=== PATIENT | male | born 1995 | race African-American/Black ===

== ENCOUNTER 2018-01-05 19:58 | Emergency (ER) | payer OTHER ==
[~2018-01-05] VITALS: Ht 177.8 cm; Wt 129.7 kg
[~2018-01-05 19:58] MED LIST: DOXYCYCLINE150 MG PO; PANTOPRAZOLE SO40 MG; SEPTRA DS TABLE1 TAB PO
[2018-01-06] MEDS ORDERED: LEVAQUIN750 MG PO (03:31)
[2018-01-06] MEDS ORDERED: KETO10TA2 PO (03:31)
== END 2018-01-06 03:38 | disposition home or self-care (01) ==
LOC: ER 19:58
DX: L03.115 Cellulitis of right lower limb (principal)

== ENCOUNTER 2021-06-25 07:23 | Emergency (ER) | payer OTHER ==
[~2021-06-25] VITALS: Ht 175.3 cm; Wt 131.5 kg
[~2021-06-25 07:23] MED LIST changes: +KETO10TA2 PO; +LEVAQUIN750 MG PO
[2021-06-25] MEDS ORDERED: IBU600 MG PO (15:54)
== END 2021-06-25 16:18 ==
LOC: ER 07:23
DX: B34.9 Viral infection, unspecified (principal); Z03.818 Encounter for observation for suspected exposure to other biological agents ruled out

== ENCOUNTER 2021-06-25 19:12 | Emergency (ER) | payer OTHER ==
[~2021-06-25] VITALS: Ht 297.2 cm
[~2021-06-25 19:12] MED LIST changes: +IBU600 MG PO
== END 2021-06-26 09:46 | disposition home or self-care (01) ==
LOC: ER 19:12
DX: L03.116 Cellulitis of left lower limb (principal); R50.9 Fever, unspecified; Z03.818 Encounter for observation for suspected exposure to other biological agents ruled out

== ENCOUNTER 2021-12-10 14:30 | Inpatient (IN) | payer OTHER ==
[~2021-12-10] VITALS: Ht 175.3 cm; Wt 132.9 kg
== END 2021-12-16 12:57 | disposition home or self-care (01) | DRG 603 ==
LOC: ER 14:30 → SEC-K 21:16 → MEDI 12-11 09:10 → MEDJ 12-13 10:53
PROVIDERS: ADMIT Internal Medicine; ATTEND Internal Medicine
DX: L03.115 Cellulitis of right lower limb (principal); R65.10 Systemic inflammatory response syndrome (SIRS) of non-infectious origin without acute organ dysfunction; Z20.822 Contact with and (suspected) exposure to COVID-19

== ENCOUNTER 2022-05-11 16:09 | Inpatient (IN) | payer OTHER ==
[~2022-05-11] VITALS: Ht 177.8 cm; Wt 131.5 kg
--- NOTE | 2022-05-11 16:46 | NUR ---
SE RECIBE A PACIENTE ALERTA Y ORIENTADO X3. REFIERE TENER DOLOR EN PIERNA IZQUIERDA. SE OBSERVA PIERNA CON ENROJECIMIENTO Y CALIENTE AL TACTO. SE LE REALIZA EKG Y SE PRESENTA A DOCTOR HUGHES. SE COLOCA PACIENTE EN TAWANA.
--- NOTE | 2022-05-11 17:37 | NUR ---
PTE ALERTO Y ORIENTADO X3. ACOMPANADO POR FAMILIAR. SE ORIENTA SOBRE TX Y MEDICAMENTO, PTE VERBALIZA ENTENDER. SE REALIZA CATY DE MUESTRAS Y BLOOD CULTURE [facility]. SE CANALIZA EN MANO DERECHA CON UN ANGIO #20, AREA BHAVA[place] DE EDEMA Y ERTIEMA. SE ADMINISTRA MEDICAMENTOS [facility]. SE OBSERVA "CELULITIS" EN PIERNA IZIERDA INFERIOR, AREA ENROJECIDA. SE MANTIENE EN OBSERVACION. TIENE PENDIENTE SEGUNDA ZAIDA DEL BLOOD CULTURE.
--- NOTE | 2022-05-11 17:55 | NUR ---
PTE ALERTO Y ORIENTADO X3. SE ORIENTA PTE SOBRE PROCEDIMIENTO Y SE REALIZA SEGUNA PARTE DE LOS BLOOD CULTURES, [facility]ICA. SE MANTIENE BAJO OBSERVACION. TIENE PENDIENTE RESULTADOS DE LABORATORIO.
== END 2022-05-17 17:21 | disposition home or self-care (01) | DRG 603 ==
LOC: ER 16:09 → SURH 05-12 06:55 → SEC-K 05-12 06:55 → SURH 05-12 07:50
PROVIDERS: ADMIT Internal Medicine; ATTEND Internal Medicine
DX: L03.116 Cellulitis of left lower limb (principal); Z68.41 Body mass index [BMI] 40.0-44.9, adult; D72.0 Genetic anomalies of leukocytes; B35.3 Tinea pedis; E66.9 Obesity, unspecified; Z20.822 Contact with and (suspected) exposure to COVID-19

== ENCOUNTER 2024-10-21 06:53 | Emergency (ER) | payer OTHER ==
[~2024-10-21] VITALS: Ht 177.8 cm; Wt 140.6 kg
[2024-10-21 07:01] VITALS: BP 136/84; O2SAT 97
== END 2024-10-21 09:21 | disposition home or self-care (01) ==
LOC: ER 06:55
DX: H66.92 Otitis media, unspecified, left ear (principal)

== ENCOUNTER 2025-04-22 16:22 | Emergency (ER) | payer OTHER ==
[~2025-04-22] VITALS: Ht 175.3 cm; Wt 140.6 kg
[2025-04-22 18:14] LABS: BASO % 0.6 % (0.1-1.2); EOS # 0.00 (0.04-0.54); EOS % 0.0 % (0.7-7.0); LYMPH # 0.44 (1.18-3.74); LYMPH % 13.6 % (19.3-53.1); MEAN PLATELET VOLUME 9.70 fl (9.4-12.4); MONO # 0.71 (0.24-0.82); NEUT # 2.06 (1.56-6.13); NEUT % 63.6 % (34.0-71.1); RED CELL DISTRIBUTION WIDTH 13.1 % (11.6-14.4)
[2025-04-22 18:37] LABS: COVID-19 AG NEGATIVE (NEGATIVE)
[2025-04-22 18:49] LABS: MONO % 21.9 % (4.7-12.5); NEUTROPHILS MAN 65.0 %
[2025-04-22 18:50] LABS: LYMPHOCYTE MAN 11.0 %; MONOCYTE MAN 22.0 %
[2025-04-22] MEDS ORDERED: ACETAMINOPHEN500 M1 PO (19:37)
== END 2025-04-22 21:06 | disposition home or self-care (01) ==
LOC: ER 16:25
PROVIDERS: Preventive Medicine Public Health & General Preventive Medicine
DX: B34.9 Viral infection, unspecified (principal); Z20.822 Contact with and (suspected) exposure to COVID-19